=== PATIENT | male | born 1990 | race Caucasian/White ===

== ENCOUNTER 2021-08-17 21:14 | Emergency (ER) | payer OTHER ==
[~2021-08-17] VITALS: Ht 177.8 cm; Wt 108.9 kg
[2021-08-17] MEDS ORDERED: PENICILLIN VK500 MG PO ×2 (21:32→21:45)
[2021-08-17] MEDS ORDERED: HYDROCODONE-AC1 EAC1 PO (21:32)
== END 2021-08-17 22:14 | disposition home or self-care (01) ==
LOC: ED 21:14
DX: K02.9 Dental caries, unspecified (principal)